=== PATIENT | female | born 1985 | race Caucasian/White ===

== ENCOUNTER 2018-06-27 10:08 | Inpatient (IN) | payer OTHER ==
[2018-06-27] MEDS ORDERED: Ondansetron PF 4 MG/2 ML Vial IVP PRN ×3 (10:15→15:05)
[2018-06-27] MEDS ORDERED: CEFAZOLIN 3 GM in Premix Bag 1 BAG IVPB SCH (10:15)
[2018-06-27] MEDS ORDERED: Promethazine HCl 25 MG/ML VIAL IM PRN ×2 (10:15→13:02)
[2018-06-27] MEDS ORDERED: Bicitra 30 ML UDCUP PO SCH (10:45)
[2018-06-27] MEDS ORDERED: CEFAZOLIN 3 GM in Sodium Chloride 0.9% 100 ML IVPB SCH (11:00)
[2018-06-27 11:20] LABS: Hemoglobin 13.1 g/dL (12.0-16.0); Mean Corpuscular HGB CONC 34.7 g/dL (32.0-36.0); Mean Corpuscular Hemoglobin 32.1 pg (27.0-31.0); Mean Corpuscular Volume 92.5 fL (78.0-98.0); Platelet Count 263 thou/uL (130-400); Red Blood Cell (RBC) Count 4.07 mill/uL (4.20-5.40); White Blood Cell (WBC) Count 11.4 thou/uL (4.8-10.8)
[2018-06-27 11:33] VITALS: BMI 49.2
[2018-06-27 11:34] LABS: ALT (SGPT) 17 U/L (8-55); AST (SGOT) 13 U/L (5-34); Albumin 3.5 g/dL (3.5-5.0); Alkaline Phosphatase 117 U/L (40-150); Anion Gap 12 mmol/L (10-20); BUN (Urea Nitrogen) 5 mg/dL (7.0-18.7); Bilirubin, Total 0.3 mg/dL (0.2-1.2); Calc. Creatinine Clearance 357 mL/min (70-130); Calcium 9.3 mg/dL (7.8-10.44); Carbon Dioxide 20 mmol/L (22-29); Chloride 108 mmol/L (98-107); Estimated GFR-MDRD Greater than 90; Globulin 3.1 g/dL (2.4-3.5); Glucose 97 mg/dL (70-105); Potassium 4.1 mmol/L (3.5-5.1); Protein, Total 6.6 g/dL (6.0-8.3); Sodium 136 mmol/L (136-145)
[2018-06-27 11:52] LABS: Syphilis Antibody Nonreactive (Nonreactive); Syphilis Antibody Index 0.03 S/CO (<1.00 Non-Reactive)
[2018-06-27 11:53] LABS: HBSAg Index 0.29 S/CO (0-0.99); Hep B Surf Ag Non-Reactive S/CO (NonReactive)
[2018-06-27] MEDS ORDERED: MORPHINE 5 MG/10 ML PF VIAL ONE (11:54)
[2018-06-27] MEDS ORDERED: Oxytocin 10 UNITS/ML VIAL ONE ×2 (11:55)
[2018-06-27] MEDS ORDERED: diphenhydrAMINE 50 MG/ML VIAL ONE (11:55)
[2018-06-27] MEDS ORDERED: Ketorolac Tromethamine 30 MG/ML VIAL ONE (11:55)
[2018-06-27] MEDS ORDERED: PHENYLEPHRINE-NS 100 MCG/ML 10 ML SYRINGE ONE (11:55)
[2018-06-27] MEDS ORDERED: Ondansetron PF 4 MG/2 ML Vial ONE (11:55)
[2018-06-27] MEDS ORDERED: Dexamethasone 4 mg/ml Vial ONE (11:55)
[2018-06-27] MEDS ORDERED: Carboprost 250 MCG/ML AMP ONE (12:09)
[2018-06-27] MEDS ORDERED: Methylergonovine 0.2 MG/ML VIAL ONE (12:09)
[2018-06-27] MEDS ORDERED: Misoprostol 200 MCG TAB ONE (12:09)
[2018-06-27] MEDS ORDERED: NS / Oxytocin 40 units/1000ml 1,000 ML ONE (12:09)
[2018-06-27] MEDS ORDERED: diphenhydrAMINE 50 MG/ML VIAL IVP PRN (13:02)
[2018-06-27] MEDS ORDERED: diphenhydrAMINE 50 MG/ML VIAL IM PRN (13:02)
[2018-06-27] MEDS ORDERED: Zolpidem Tartrate 5 MG TAB PO PRN (13:02)
[2018-06-27] MEDS ORDERED: Naloxone HCl 0.4 mg/ml Vial IV PRN (13:02)
[2018-06-27] MEDS ORDERED: Ondansetron HCl/PF 4 MG/2 ML Vial IVP PRN (13:02)
[2018-06-27] MEDS ORDERED: Meperidine HCl/PF 25 MG/ML VIAL SLOW IVP PRN (13:02)
[2018-06-27] MEDS ORDERED: diphenhydrAMINE 25 MG CAP PO PRN (13:02)
[2018-06-27] MEDS ORDERED: L&D-Morphine 4 MG/ML VIAL SLOW IVP PRN (13:02)
[2018-06-27] MEDS ORDERED: HYDROmorphone 2 MG/ML VIAL SLOW IVP PRN (13:02)
[2018-06-27] MEDS ORDERED: fentaNYL Citrate/PF 2,000 MCG in Sodium Chloride 0.9% 60 ML IV PRN (13:02)
[2018-06-27] MEDS ORDERED: Ketorolac Tromethamine 30 MG/ML VIAL IVP SCH (13:15)
[2018-06-27] MEDS ORDERED: Communication Order-Pharmacy FS SCH (13:15)
--- NOTE | 2018-06-27 13:40 | PDOC.OPDEL ---
OB Operative/Delivery Note Delivery Dr/Surgeon: Kartik Assist: Kirit Garces Pre-Delivery Diagnosis: scheduled section (CHTN w superimposed PIH @ 37 weeks) Procedure/Post Delivery Dx: repeat low transverse CS Weeks gestation: 37 Anesthesia: spinal - Findings A Sex: female Weight: 7 lb 3 oz - 1 min: 8 - 5 min: 9 - Additional Findings/Plan Placenta delivered: spontaneous findings: low transverse hysterotomy without extension, normal uterus, normal tubes, normal ovaries Estimated blood loss: 600ml Post delivery plan: routine recovery
[2018-06-27] MEDS ORDERED: NS / Oxytocin 40 units/1000ml 1,000 ML IV SCH (15:05)
[2018-06-27] MEDS ORDERED: Bisacodyl 10 MG SUPP PR PRN (15:05)
[2018-06-27] MEDS ORDERED: HYDROcodone/Acetaminophen 5/325 mg Tablet PO PRN (15:05)
[2018-06-27] MEDS ORDERED: Adacel (T-DAP) 0.5 ML SYRINGE IM ONE (15:05)
[2018-06-27] MEDS ORDERED: Lactated Ringer's 1,000 ML IV SCH (15:05)
[2018-06-27] MEDS ORDERED: Simethicone Chewable 80 MG TAB PO PRN (15:05)
[2018-06-27] MEDS: Ketorolac Tromethamine 30 MG/ML VIAL IVP PRN (18:41)
--- NOTE | 2018-06-27 19:53 | OP ---
DATE OF PROCEDURE: 06/27/2018 PREOPERATIVE DIAGNOSES: 1. 32-year-old, G5, P3-0-1-3 at 37 weeks and 0 days. 2. Chronic hypertension with superimposed preeclampsia. 3. Previous section x3. POSTOPERATIVE DIAGNOSES: 1. 32-year-old, G5, P3-0-1-3 at 37 weeks and 0 days. 2. Chronic hypertension with superimposed preeclampsia. 3. Previous section x3. PROCEDURES PERFORMED: Repeat low-transverse section with placement of Prevena prophylactic wound VAC. MIXER ATTENDANT: Addie Garces DO and Dr. Beth, family therapist. ANESTHESIA: Spinal per Dr. Ayers. COMPLICATIONS: None. ESTIMATED BLOOD LOSS: 600 mL. FINDINGS: 1. No intraabdominal adhesive disease. 2. Low-transverse hysterotomy without extension. 3. Normal placenta sent for pathologic review. 4. Normal-appearing tubes and ovaries bilaterally. 5. Vigorous female , Apgars 8 and 9, weight 7 pounds 3 ounces. nursery. 6. Surgical site hemostatic. DESCRIPTION OF PROCEDURE: The patient was taken back to the OR with IV fluids running. When she was in the OR, spinal anesthesia was obtained. Once anesthesia was obtained, the patient was placed in dorsal supine position with a left lateral tilt. Reece catheter had previously been placed. She received 3 g of Ancef for prophylaxis. The abdomen was prepped and draped in normal fashion for section. The surgeons were scrubbed and gowned in. A Pfannenstiel skin incision was made with a scalpel. The skin incision was carried down through the subcutaneous tissue to the fascia. Once the fascia was reached, it was incised in the midline and extended superolaterally using curved Calero scissors. Romero clamps were placed at the superior border of the fascia, which was sharply and bluntly dissected off the rectus abdominis muscles. In similar fashion, Romero clamps were placed at the inferior border of the fascia, which was dissected down toward the level of the pubic symphysis. The rectus muscles and peritoneum were bluntly stretched. An Lennox O retractor was placed into the abdominal cavity for retraction, visualization, and protection of the wound. Metzenbaum scissors were used to create a bladder flap and the bladder flap was dissected away from the planned hysterotomy site. The hysterotomy was made with a scalpel. The hysterotomy was bluntly entered and stretched superolaterally using Fontana maneuver. The amniotomy was performed. The infant was delivered without difficulty through the hysterotomy. The nose and mouth were suctioned. The cord was doubly clamped and cut. The was handed off to special care nurse in attendance. Cord blood was collected. The placenta was delivered. Uterus was exteriorized, massaged to firm and cleared of clot and debris. Uterus was returned to abdominal cavity. The hysterotomy was inspected again with no extension noted. The hysterotomy was closed with Monocryl suture in a running locked fashion. After the hysterotomy was closed and noted to be hemostatic, the hysterotomy and paracolic gutters were irrigated and suctioned dry. No areas of bleeding were noted. The rectus muscle and fascia were inspected with no areas of bleeding noted. The rectus fascia was then reapproximated with PDS suture from corner to corner and tied separately in the midline. The subcutaneous tissue was then irrigated and dried. No areas of bleeding were noted. Subcutaneous tissue was reapproximated with a layered plain gut suture. Sterile stapler was used to reapproximate the skin and a Prevena prophylactic wound dressing was placed over the incision. The patient tolerated the procedure well. She was transferred to the recovery room in good condition. Job ID: [id number]
[2018-06-28] MEDS: Docusate Calcium (SURFAK) 240 MG CAP PO SCH ×3 (01:09→20:54)
[2018-06-28] MEDS: Ketorolac Tromethamine 30 MG/ML VIAL IVP PRN (01:10)
[2018-06-28 06:15] LABS: Hemoglobin 11.5 g/dL (12.0-16.0); Mean Corpuscular HGB CONC 34.1 g/dL (32.0-36.0); Mean Corpuscular Hemoglobin 31.8 pg (27.0-31.0); Mean Corpuscular Volume 93.3 fL (78.0-98.0); Mean Platelet Volume 7.7 fL (7.4-10.4); Platelet Count 250 thou/uL (130-400); RBC Distribution Width 12.9 % (11.5-14.5); Red Blood Cell (RBC) Count 3.61 mill/uL (4.20-5.40); White Blood Cell (WBC) Count 14.6 thou/uL (4.8-10.8)
--- NOTE | 2018-06-28 07:20 | PRG ---
DATE OF SERVICE: 06/28/2018 SUBJECTIVE: The patient is a 32-year-old female, postop day 1, status post a repeat at term for chronic hypertension with superimposed preeclampsia and prior x3. The patient has been on a LATH HAND pump for pain control over the last 24 hours from . She is tolerating p.o. well, having good pain control and decreased lochia and is voiding on her own as the Reece catheter has since been removed. OBJECTIVE: VITAL SIGNS: This morning, blood pressure is 146/87, pulse 67, respiratory rate 18. GENERAL: She appears to be in no acute distress. She is alert, oriented, cooperative, and pleasant to interact with. ABDOMEN: Incision is covered with a wound VAC. Fundus is difficult to assess due to habitus. LABORATORY DATA: Her post delivery hemoglobin is 11.5, hematocrit 33.7, platelets of 250,000. ASSESSMENT AND PLAN: The patient is a 32-year-old female, postop day 1, status post a repeat at 37 weeks for chronic hypertension with superimposed preeclampsia. We will discontinue LATH HAND today per Anesthesia's orders and will begin hydrocodone p.o. for pain control in addition to the 800 mg of ibuprofen. We will continue in-house care for the next couple of days. Anticipate discharge at that time. We will continue to monitor blood pressures. Job ID: [id number]
[2018-06-28] MEDS: Prenatal Vitamin 1 TAB PO SCH (09:29)
[2018-06-28] MEDS: HYDROcodone/Acetaminophen 5/325 mg Tablet PO PRN ×3 (11:09→20:55)
[2018-06-28] MEDS: Ibuprofen 800 MG TAB PO SCH ×2 (14:15→20:55)
[2018-06-29] MEDS: Ibuprofen 800 MG TAB PO SCH (04:34)
[2018-06-29] MEDS: HYDROcodone/Acetaminophen 5/325 mg Tablet PO PRN ×2 (04:34→09:00)
[2018-06-29] MEDS: Prenatal Vitamin 1 TAB PO SCH (08:18)
[2018-06-29] MEDS: Docusate Calcium (SURFAK) 240 MG CAP PO SCH (08:18)
[2018-06-29 09:13] VITALS: BP 133/78; TEMP 97.8
[2018-06-30] MEDS ORDERED: Ibuprofen 800 MG TAB PO SCH (14:00)
== END 2018-06-29 12:10 | disposition home or self-care (01) | DRG 787 ==
LOC: L&D 10:08 → 3SW 15:52
PROVIDERS: ADMIT Obstetrics & Gynecology; ATTEND Obstetrics & Gynecology
PROC: 10D00Z1 Extraction of Products of Conception, Low, Open Approach (ICD-10-PCS; principal; 2018-06-27)
DX: O34.211 Maternal care for low transverse scar from previous cesarean delivery (principal); O10.92 Unspecified pre-existing hypertension complicating childbirth; O99.214 Obesity complicating childbirth; E66.9 Obesity, unspecified; O11.4 Pre-existing hypertension with pre-eclampsia, complicating childbirth; Z3A.37 37 weeks gestation of pregnancy; Z37.0 Single live birth; Z90.49 Acquired absence of other specified parts of digestive tract
CPT/HCPCS: 36415; 51702; 80053; 85027; 86780; 86850; 86900; 86901; 87340; J0690; J1100; J1200; J1885; J2210; J2270; J2405; J2590; J3010; J3490

== ENCOUNTER 2019-06-27 20:34 | Day surgery (SDC) | payer OTHER ==
[2019-06-27] MEDS ORDERED: hydrALAZINE 20 MG/ML VIAL SLOW IVP PRN (21:25)
--- NOTE | 2019-06-27 21:36 | PDOC.FPROB ---
FMR OB H&P: HPI - History of Present Illness Chief Complaint: Elevated BP readings at home Indentification: 33 year at 31.5 wks History of Present Illness: 33 year at 31.5 wks presents with elevated BP readings at home. Patient reports BP's systolic in 160's to 180's range. She states she was asymptomatic during these readings. She would go lay on her left side and repeat the BP and the readings would improve, but as soon as she got back up they would be high again. She states this happened last night as well. Patient does have a history of PIH in past pregnancies. She is currently on ASA. Patient has history of chronic intermittent headaches. She states that she had one yesterday, but not today. She states they usually resolve with tylenol, time, and rest. She denies abdominal pain, scotoma. She endorses lower extremity swelling R>L since yesterday. She denies shortness of breath, cough, congestion, fever, chills, chest pain, pain in legs with ambulation. Primary Care Physician: Dr. Verdugo FMR OB H&P: Current - Care : 6 Para: [id number] Gestational age: 31.5 wks FMR OB H&P: History - Past Medical History PMH: Denies significant PMH - OB History OB History: History of PIH in past pregnancies, currently on ASA Obesity - MANUFACTURING APPLICATIONS ENGINEER History MANUFACTURING APPLICATIONS ENGINEER History: Denies STD's - Surgical History Sx History: LTCS x4, Cholecystectomy, Laporatomy for post-op bleeding after first C/S - Social History Social History: Denies alcohol or drug use. Endorses tobacco use, appx 1 PPD. FMR OB H&P: Medications - Current Home Medications: Medication Instructions Recorded Confirmed Type Mv-Mn/Iron/FA/Herbal/Digestive 1 tab PO DAILY 10/14/13 06/27/19 History [ One Tablet] Allergies/Adverse Reactions: Allergies Allergy/AdvReac Type Severity Reaction Status Date / Time pertussis vaccine,fluid Allergy Severe Anaphylaxis Verified 06/27/18 11:34 [Pertussis Vaccine,Fluid] morphine Allergy Intermediate Anxiety Verified 06/27/18 11:34 FMR OB H&P: ROS - Review of Systems General: denies: fever/chills, weight/appetite/sleep changes, fatigue Eyes: denies: vision changes, double vision, scotomas ENT: denies: nasal congestion, rhinorrhea, sore throat Cardiovascular: reports: edema. denies: chest pain, palpitation Respiratory: denies: cough, congestion, shortness of breath Gastrointestinal: denies: abdominal pain, nausea, vomiting, diarrhea Genitourinary (Female): denies: dysuria, vaginal discharge, vaginal pain, vaginal bleeding Musculoskeletal: denies: pain, stiffness, tenderness Neurologic: denies: numbness, syncope Integumentary: denies: itching, rash, lesions Hematologic/Lymphatic: denies: prolonged or excessive bleeding Psychological: denies: depression, anxiety FMR OB H&P: Vital Signs - Maternal Vital signs: BP 131/60 Pulse 100 Afebrile Pulse ox 98% FMR OB H&P: Physical Exam - Physical Exam General: NAD, awake, alert and oriented HEENT: MMM, grossly normal vision, grossly normal hearing Heart: RRR, no murmurs/rubs/gallops, other (Trace edema of b/l LE's. No significant assymetry in regards to leg size. Neg kayleigh) General: CTAB, no respiratory distress Abdomen: soft, gravid, non-tender Musculoskeletal: pulses present, FROM in all four extremities Neurological: no tremor, no focal deficit Skin: no rash, capillary refill <2 seconds Psychiatric: intact recent and remote memory, good judgement and insight, normal mood and affect FMR OB H&P: A/P - Problem List (1) Intrauterine Current Visit: Yes Status: Acute Code(s): Z34.90 - ENCNTR FOR SUPRVSN OF NORMAL , UNSP, UNSP TRIMESTER (2) History of induced hypertension Current Visit: Yes Status: Acute Code(s): Z87.59 - PERSONAL HISTORY OF COMP OF PREG, CHLDBRTH AND THE PUERP (3) Previous section Current Visit: Yes Status: Acute Code(s): Z98.891 - HISTORY OF UTERINE SCAR FROM PREVIOUS SURGERY (4) Obesity affecting in third trimester Current Visit: Yes Status: Acute Code(s): O99.213 - OBESITY COMPLICATING , THIRD TRIMESTER Disposition: 33 year old at 31.5wks presents with elevated BP's at home IUP - at 31.5 wks - hx PIH in past pregnancies, on ASA - maternal obesity, but no other complications noted during current - hx LTCS x4 Elevated BP readings without diagnosis of PIH during current - BP's readings at home reported to be in systolics 160's to 180's - Patient uncertain if cuff appropriately calibrated or being taken correctly - BP's since being on L&D have been WNL, will continue to monitor until BPP done - Unable to get adequate NST due to maternal habitus, will proceed with BPP to assess well being - Patient asymptomatic; no scotoma, persistent headache, RUQ abdominal pain. She has only noted some increased LE swelling - If BP's remain WNL, will d/c home with strict return precautions. Advised patient to take cuff to PCP's office to ensure it is taking accurate BP's Maternal obesity - Given maternal obesity and hx of PIH in past pregnancies, patient was seen for MFM. She reports she has been cleared from their standpoint. - Patient on ASA Dispo: Obs on L&D. Pending BPP. Monitor BP. Discussion: Date/Time: 06/27/192129 This H&P was discussed with Dr. Chase who agrees with the above documentation and plan. Signature: Saskia Espinal, PGY-3 Addendum - Attending - Attending Attestation Date/Time: 06/27/192209 I personally evaluated the patient and discussed the management with Dr. Espinal. I agree with the History, Examination, Assessment and Plan documented above.
--- NOTE | 2019-06-27 22:14 | PDOC.BPN ---
- Brief Progress Note 06/26 at 22:00 BP's all WNL (<140/90) BPP 09/12 Will d/c patient home with strict return precautions. Advised patient to follow with OB provider within next week. Advised to bring BP cuff to follow up visit. Saskia Espinal, DO PGY-3
--- NOTE | 2019-06-27 22:48 | ULT ---
ULTRASOUND BIOPHYSICAL PROFILE: Date: 06/27/2019 HISTORY: Elevated blood pressure. COMPARISON: None. FINDINGS: Real-time Becerra scale with color Doppler and spectral analysis of the gravid uterus performed transabd ominal approach. Biophysical profile score is 8/8. Single, viable intrauterine with a heart rate of 137 bpm. position is breech and placenta is anterior. IMPRESSION: Biophysical profile score of 8/8. POS: HOME
== END 2019-06-27 22:28 | disposition home or self-care (01) ==
LOC: L&D/OP 20:34
PROVIDERS: ATTEND Obstetrics & Gynecology
DX: O99.89 Other specified diseases and conditions complicating pregnancy, childbirth and the puerperium (principal); R03.0 Elevated blood-pressure reading, without diagnosis of hypertension; R51 Headache; O99.213 Obesity complicating pregnancy, third trimester; E66.9 Obesity, unspecified; O34.211 Maternal care for low transverse scar from previous cesarean delivery; Z3A.31 31 weeks gestation of pregnancy; Z88.5 Allergy status to narcotic agent; Z88.7 Allergy status to serum and vaccine
CPT/HCPCS: 76819

== ENCOUNTER 2019-08-01 12:30 | Outpatient (CLI) | payer OTHER ==
[2019-08-02 13:18] LABS: SARS-CoV-2 MS2 Positive; SARS-CoV-2 N Gene Negative; SARS-CoV-2 S Gene Negative; SARS-CoV-2 orf1ab Negative
== END 2019-08-01 12:31 | disposition home or self-care (01) ==
LOC: SCSLAB 12:30
PROVIDERS: ATTEND Obstetrics & Gynecology
DX: Z01.812 Encounter for preprocedural laboratory examination (principal); Z11.59 Encounter for screening for other viral diseases
CPT/HCPCS: 87635; U0003

== ENCOUNTER 2019-08-06 07:30 | Inpatient (IN) | payer OTHER ==
--- NOTE | 2019-08-06 07:57 | PDOC.LDHP ---
Labor and Delivery H&P Chief complaint: scheduled section HPI: Pt is here for scheduled RCS for superimposed PIH without severe features. Current gestational age (weeks): 37 Due date: 08/26/19 Dating criteria: last menstrual period, second trimester ultrasound Grav: 6 Para: 4 OB History Details: prev CS x 4 Current complications: preeclampsia without severe features ( superimposed) Abnormal US findings: No Current medications: pre-ella vitamins, other (labetalol 100mg BID) Previous surgical history: low tranverse CS (x4) Allergies/Adverse Reactions: Allergies Allergy/AdvReac Type Severity Reaction Status Date / Time pertussis vaccine,fluid Allergy Severe Anaphylaxis Verified 06/27/18 11:34 [Pertussis Vaccine,Fluid] morphine Allergy Intermediate Anxiety Verified 06/27/18 11:34 Social history: tobacco use - OB Labs RH: positive Antibody Screen: negative HIV: negative RPR: negative HEPSAg: negative 1 hour GCT: negative GBS: negative Urine drug screen: negative Rubella: immune - Assessment L&D Assessment: scheduled repeat section (@ 37 weeks for superimposed PIH) - Plan Plan: admit to L&D, to OR for section, informed consent obtained, anesthesia consult for pain management -: Prev CS x 4, scheduled RCS for superimposed PIH without severe features, hx of obesity, CHTN and tobacco use.
[2019-08-06] MEDS ORDERED: Lactated Ringer's 1,000 ML IV SCH (11:01)
[2019-08-06] MEDS ORDERED: Bicitra 30 ML UDCUP PO SCH (11:01)
[2019-08-06] MEDS ORDERED: Ondansetron PF 4 MG/2 ML Vial IVP PRN ×4 (11:01→16:20)
[2019-08-06] MEDS ORDERED: Promethazine HCl 25 MG/ML VIAL IM PRN ×4 (11:01→16:20)
[2019-08-06] MEDS ORDERED: hydrALAZINE 20 MG/ML VIAL SLOW IVP PRN ×2 (11:01→16:20)
[2019-08-06 11:09] VITALS: BMI 51.7
[2019-08-06] MEDS ORDERED: CEFAZOLIN 3 GM in Sodium Chloride 0.9% 100 ML IVPB SCH (11:15)
[2019-08-06 11:42] LABS: Hemoglobin 12.9 g/dL (12.0-16.0); Mean Corpuscular HGB CONC 33.2 g/dL (32.0-36.0); Mean Corpuscular Hemoglobin 30.4 pg (27.0-31.0); Mean Corpuscular Volume 91.6 fL (78.0-98.0); Mean Platelet Volume 7.6 fL (7.4-10.4); Platelet Count 294 thou/uL (130-400); RBC Distribution Width 13.7 % (11.5-14.5); Red Blood Cell (RBC) Count 4.23 mill/uL (4.20-5.40)
[2019-08-06] MEDS ORDERED: Famotidine/PF 20 mg/2ml Vial ONE (12:06)
[2019-08-06] MEDS ORDERED: Carboprost 250 MCG/ML AMP ONE (12:10)
[2019-08-06] MEDS ORDERED: Methylergonovine 0.2 MG/ML VIAL ONE (12:10)
[2019-08-06] MEDS ORDERED: Misoprostol 200 MCG TAB ONE (12:10)
[2019-08-06 12:17] LABS: HBSAg Index 0.14 S/CO (0-0.99); Hep B Surf Ag Non-Reactive S/CO (NonReactive); Syphilis Antibody Nonreactive (Nonreactive); Syphilis Antibody Index 0.02 S/CO (<1.00 Non-Reactive)
[2019-08-06 12:44] LABS: ALT (SGPT) 7 U/L (8-55); AST (SGOT) 9 U/L (5-34); Albumin 3.5 g/dL (3.5-5.0); Alkaline Phosphatase 98 U/L (40-110); Anion Gap 12 mmol/L (10-20); BUN (Urea Nitrogen) 6 mg/dL (7.0-18.7); Bilirubin, Total 0.3 mg/dL (0.2-1.2); Calc. Creatinine Clearance 364 mL/min (70-130); Calcium 8.7 mg/dL (7.8-10.44); Carbon Dioxide 20 mmol/L (22-29); Chloride 107 mmol/L (98-107); Estimated GFR-MDRD Greater than 90; Globulin 3.1 g/dL (2.4-3.5); Glucose 85 mg/dL (70-105); Potassium 4.3 mmol/L (3.5-5.1); Protein, Total 6.6 g/dL (6.0-8.3); Sodium 135 mmol/L (136-145)
[2019-08-06] MEDS ORDERED: EPINEPHrine 1 MG/ML AMP ONE (13:05)
[2019-08-06] MEDS ORDERED: Oxytocin 10 UNITS/ML VIAL ONE (13:05)
[2019-08-06] MEDS ORDERED: HYDROmorphone 10 mg/100 ml CADD IVPB PRN (13:44)
[2019-08-06] MEDS ORDERED: diphenhydrAMINE 50 MG/ML VIAL IVP PRN ×2 (13:44→13:46)
[2019-08-06] MEDS ORDERED: diphenhydrAMINE 25 MG CAP PO PRN (13:44)
[2019-08-06] MEDS ORDERED: diphenhydrAMINE 50 MG/ML VIAL IM PRN (13:44)
[2019-08-06] MEDS ORDERED: Naloxone HCl 0.4 mg/ml Vial IV PRN ×2 (13:44→13:46)
[2019-08-06] MEDS ORDERED: Ketorolac Tromethamine 30 MG/ML VIAL IVP PRN (13:44)
[2019-08-06] MEDS ORDERED: Communication Order-Pharmacy FS SCH ×2 (13:45→14:00)
[2019-08-06] MEDS ORDERED: Ondansetron HCl/PF 4 MG/2 ML Vial IVP PRN (13:46)
[2019-08-06] MEDS ORDERED: Naloxone HCl 0.4 mg/ml Vial IVP PRN ×2 (13:46)
[2019-08-06] MEDS ORDERED: Meperidine HCl/PF 25 MG/ML VIAL SLOW IVP PRN (13:46)
[2019-08-06] MEDS ORDERED: Promethazine HCl 25 MG SUPP PR PRN (13:46)
[2019-08-06] MEDS ORDERED: HYDROmorphone 2 MG/ML VIAL SLOW IVP PRN (13:46)
[2019-08-06] MEDS ORDERED: NS / Oxytocin 40 units/1000ml 1,000 ML ONE (15:07)
[2019-08-06] MEDS ORDERED: HYDROcodone/Acetaminophen 5/325 mg Tablet PO PRN ×2 (16:20)
[2019-08-06] MEDS ORDERED: Bisacodyl 10 MG SUPP PR PRN (16:20)
[2019-08-06] MEDS ORDERED: Lanolin Ointment 7 GM TUBE TOP PRN (16:20)
--- NOTE | 2019-08-06 18:03 | OP ---
DATE OF PROCEDURE: 08/06/2019 ADDENDUM: I was present and scrubbed to assist the uncomplicated repeat low-transverse with Dr. Slade Verdugo. Please see her note for full details. Job ID: [id number]
--- NOTE | 2019-08-06 18:03 | OP ---
DATE OF PROCEDURE: 08/06/2019 PREOPERATIVE DIAGNOSES: 1. G6, P4-0-1-4, 37 weeks and 1 day. 2. Morbid obesity. 3. Tobacco user. 4. Chronic hypertension with superimposed preeclampsia. 5. Previous section x4. POSTOPERATIVE DIAGNOSES: 1. G6, P4-0-1-4, 37 weeks and 1 day. 2. Morbid obesity. 3. Tobacco user. 4. Chronic hypertension with superimposed preeclampsia. 5. Previous section x4. PROCEDURE PERFORMED: Repeat low-transverse section, #5. ROOF PANEL HANGER: Otilia Chase MD COMPLICATIONS: None. ESTIMATED BLOOD LOSS: 500 mL. FINDINGS: 1. Vigorous female infant, Apgars and weight pending at the time of dictation. 2. Low-transverse hysterotomy without extension. 3. No intraabdominal adhesive disease noted. 4. Normal-appearing uterus, tubes, and ovaries bilaterally. 5. Fundus firm and hysterotomy hemostatic after closure. PROCEDURE IN DETAIL: The patient was taken back to the OR with IV fluids running. Once she was in the OR, anesthesia was placed. The patient was then placed in dorsal supine position with a left lateral tilt. Reece catheter was placed using sterile technique. A 3 g of Ancef were administered. Doppler heart tones were located and the abdomen was prepped and draped in normal fashion for section. Surgeons were gowned and gloved. Anesthesia was tested and found to be adequate. A Pfannenstiel skin incision was made with a scalpel. The skin incision was carried down through the subcutaneous to the fascia. Once the fascia was reached, it was incised in the midline and extended superolaterally using curved Calero scissors. Romero clamps were placed at the superior border of the fascia, which was sharply and bluntly dissected off the rectus abdominis muscles. In a similar fashion, Romero clamps were placed at the inferior border of the fascia, which was dissected down towards the level of pubic symphysis. The rectus muscles were bluntly in the midline and stretched. An Lennox O retractor was placed into the peritoneal cavity for retraction, visualization, and protection of the wound. A bladder flap was created and dissected away from the planned hysterotomy site. Hysterotomy was made. Clear fluid was noted. The was delivered through the incision without difficulty. Nose and mouth were suctioned. The cord was doubly clamped and cut. The was handed off to special care nurse in attendance. Cord blood was collected. The placenta was delivered. The uterus was exteriorized, massaged to firm and cleared of clot and debris. The uterus was returned to the abdominal cavity. The hysterotomy was reapproximated with Monocryl suture in a running locked fashion. After hemostasis was assured, the hysterotomy and paracolic gutters were irrigated and dried. The Lennox O retractor was then removed from the abdominal cavity. The rectus fascia and muscles were inspected and no bleeding was noted. Rectus fascia was reapproximated with PDS suture in a running fashion. Subcutaneous tissue was irrigated and dried. Any small areas of bleeding were controlled with cauterization. Plain gut suture was used to reapproximate the subcutaneous tissue. Subcuticular layer was reapproximated with sterile lupe and a YUE sterile dressing was applied. The patient tolerated the procedure well. There were no complications. Job ID: [id number]
[2019-08-06] MEDS: Docusate Calcium (SURFAK) 240 MG CAP PO SCH (21:34)
[2019-08-06] MEDS: Labetalol 100 MG TAB PO SCH (21:34)
[2019-08-06] MEDS: Ketorolac Tromethamine 30 MG/ML VIAL IVP PRN (21:35)
[2019-08-07] MEDS: Ferrous Sulfate 325 MG TAB PO SCH ×2 (01:44→08:20)
[2019-08-07] MEDS: Ketorolac Tromethamine 30 MG/ML VIAL IVP PRN (04:15)
[2019-08-07 07:16] LABS: Hemoglobin 10.7 g/dL (12.0-16.0); Mean Corpuscular HGB CONC 33.2 g/dL (32.0-36.0); Mean Corpuscular Hemoglobin 30.7 pg (27.0-31.0); Mean Corpuscular Volume 92.7 fL (78.0-98.0); Mean Platelet Volume 7.4 fL (7.4-10.4); Platelet Count 252 thou/uL (130-400); RBC Distribution Width 13.7 % (11.5-14.5); Red Blood Cell (RBC) Count 3.48 mill/uL (4.20-5.40); White Blood Cell (WBC) Count 16.3 thou/uL (4.8-10.8)
--- NOTE | 2019-08-07 08:05 | PDOC.PP ---
Post Progress Note Post Day #: 1 Subjective: doing well, ambulating, tolerating regular diet, pain controlled w TRANSFORMER INSPECTOR PO intake tolerated: yes Flatus: yes Ambulation: yes Vital Signs (12 hours) Temp Pulse Resp BP BP Pulse Ox 08/07/19 03:00 98.2 F 78 20 124/68 97 08/07/19 00:42 97.9 F 70 20 110/58 L 96 08/06/19 21:34 75 117/59 L 08/06/19 20:35 98.0 F 75 20 117/59 L 96 Weight Weight 340 lb - Physical Examination General: NAD Respiratory: non-labored breathing Abdominal: no distention Fundus firm & at: diff to assess due to habitus Extremities: negative homans (B) Skin: CS incision dry & intact (clean melissa dressing) Neurological: no gross focal deficits Psychiatric: A&Ox3, normal affect Result Diagrams: 08/07/19 07:02 08/06/19 11:27 Additional Labs: Post Labs Blood Type A POSITIVE 08/06/19 11:27 Hep Bs Antigen Non-Reactive S/CO (NonReactive) 08/06/19 11:27 (1) 37 weeks gestation of Code(s): Z3A.37 - 37 WEEKS GESTATION OF Status: Acute (2) Pre-eclampsia superimposed on chronic hypertension Code(s): O11.9 - PRE-EXISTING HYPERTENSION WITH PRE-ECLAMPSIA, UNSP TRIMESTER Status: Acute (3) Previous section Code(s): Z98.891 - HISTORY OF UTERINE SCAR FROM PREVIOUS SURGERY Status: Acute (4) Chronic hypertension Code(s): I10 - ESSENTIAL (PRIMARY) HYPERTENSION Status: Chronic (5) Severe obesity (BMI >= 40) Code(s): E66.01 - MORBID (SEVERE) OBESITY DUE TO EXCESS CALORIES Status: Acute - Assessment/Plan POD1 doing well sp RCS # 5 @ 37 weeks for superimpoesd PIH on CHTN. BP WNL this AM, no si/sx of worsening disease. Continue post op care.
[2019-08-07] MEDS: Labetalol 100 MG TAB PO SCH ×2 (08:19→20:45)
[2019-08-07] MEDS: Docusate Calcium (SURFAK) 240 MG CAP PO SCH ×2 (08:20→20:44)
[2019-08-07] MEDS: Simethicone Chewable 80 MG TAB PO PRN ×2 (08:20→20:44)
[2019-08-07] MEDS: Prenatal Vitamin 1 TAB PO SCH (08:20)
[2019-08-07] MEDS ORDERED: HYDROcodone/Acetaminophen 5/325 mg Tablet PO PRN (10:07)
[2019-08-07] MEDS: HYDROcodone/Acetaminophen 5/325 mg Tablet PO PRN ×3 (10:33→18:58)
[2019-08-07] MEDS: Ibuprofen 800 MG TAB PO SCH (20:45)
[2019-08-08] MEDS: Ferrous Sulfate 325 MG TAB PO SCH ×2 (00:21→09:10)
[2019-08-08] MEDS: HYDROcodone/Acetaminophen 5/325 mg Tablet PO PRN ×3 (00:42→10:35)
[2019-08-08] MEDS: Ibuprofen 800 MG TAB PO SCH (05:38)
[2019-08-08] MEDS ORDERED: Ibuprofen 800 MG TAB PO SCH (06:00)
[2019-08-08 08:18] VITALS: BP 121/72; TEMP 98
[2019-08-08] MEDS: Docusate Calcium (SURFAK) 240 MG CAP PO SCH (09:09)
[2019-08-08] MEDS: Labetalol 100 MG TAB PO SCH (09:10)
[2019-08-08] MEDS: Prenatal Vitamin 1 TAB PO SCH (09:10)
--- NOTE | 2019-08-08 09:14 | PDOC.PP ---
Post Progress Note Post Day #: 2 Subjective: doing well, desires DC home PO intake tolerated: yes Flatus: yes Ambulation: yes Vital Signs (12 hours) Temp Pulse Resp BP BP Pulse Ox 08/08/19 09:10 90 121/72 08/08/19 08:17 98.0 F 90 20 121/72 98 08/08/19 05:40 97.4 F L 82 16 124/70 08/08/19 00:40 98.2 F 92 16 128/58 L Weight Weight 340 lb - Physical Examination General: NAD Respiratory: non-labored breathing Abdominal: no distention Skin: CS incision dry & intact (through dressing) Psychiatric: A&Ox3, normal affect Result Diagrams: 08/07/19 07:02 08/06/19 11:27 Additional Labs: Post Labs Blood Type A POSITIVE 08/06/19 11:27 Hep Bs Antigen Non-Reactive S/CO (NonReactive) 08/06/19 11:27 (1) 37 weeks gestation of Code(s): Z3A.37 - 37 WEEKS GESTATION OF Status: Acute (2) Pre-eclampsia superimposed on chronic hypertension Code(s): O11.9 - PRE-EXISTING HYPERTENSION WITH PRE-ECLAMPSIA, UNSP TRIMESTER Status: Acute (3) Previous section Code(s): Z98.891 - HISTORY OF UTERINE SCAR FROM PREVIOUS SURGERY Status: Acute (4) Chronic hypertension Code(s): I10 - ESSENTIAL (PRIMARY) HYPERTENSION Status: Chronic (5) Severe obesity (BMI >= 40) Code(s): E66.01 - MORBID (SEVERE) OBESITY DUE TO EXCESS CALORIES Status: Acute - Assessment/Plan POD2 sp RCS, BP WNL/controlled w labetalol PP> Plan for DC, BP check and incision check next week.
== END 2019-08-08 11:10 | disposition home or self-care (01) | DRG 787 ==
LOC: L&D-LIB 10:12 → 3SW 17:23
PROVIDERS: ADMIT Obstetrics & Gynecology; ATTEND Obstetrics & Gynecology
PROC: 10D00Z1 Extraction of Products of Conception, Low, Open Approach (ICD-10-PCS; principal; 2019-08-06)
DX: O34.211 Maternal care for low transverse scar from previous cesarean delivery (principal); O10.02 Pre-existing essential hypertension complicating childbirth; O11.4 Pre-existing hypertension with pre-eclampsia, complicating childbirth; O99.214 Obesity complicating childbirth; E66.01 Morbid (severe) obesity due to excess calories; O99.334 Smoking (tobacco) complicating childbirth; F17.200 Nicotine dependence, unspecified, uncomplicated; Z3A.37 37 weeks gestation of pregnancy; Z37.0 Single live birth
CPT/HCPCS: 36415; 80053; 85027; 86780; 86850; 86900; 86901; 87340; J0171; J0690; J1885; J2210; J2590; J3490; S0028